=== PATIENT | male | born 1950 | race Caucasian/White ===

== ENCOUNTER → 2017-03-14 | Outpatient (CLI) | payer OTHER, MEDICARE ==
--- NOTE | ~2017-03-14 | PUL ---
PATIENT'S NAME: ALEXANDRIA SUAREZ [facility] AGE: 66 Y [address] ROOM: [place] [address] LOCATION: [facility] ADMIT DATE: 03/14/2017 Pulmonary DISCHARGE DATE: FAMILY PHYSICIAN: AB SALINAS MD ATTENDING PHYSICIAN: AB SALINAS NAME OF PROCEDURE: Sleep Study PROCEDURE DATE: 03/14/17 TECH: TASHA Dooley TEST #: [facility] [place] [id number] TECHNICAL PARAMETERS: The patient was studied using International 10/20 measuring system. While the patient was studied, there was continuous monitoring of EEG (8 leads), EOG (2 leads), EKG (3 leads), submental EMG (3 leads), tibial (4 leads), respiratory inductive plethysmography (RIP) for thoracic and abdominal effort, oral and nasal airflow with a thermocouple and pressure transducer, and oximetry. The case technician also performed visual and auditory observations noting things like body position, patient's status, breath sounds, artifact, snoring level and patient comments. Continuous sound was monitored using a 2-way speaker system and video monitoring was performed using an infrared camera. Review of the entire study was performed epoch by epoch utilizing a single epoch and multiple epoch capability sleep system. MEDICAL HISTORY: The patient is a 66-year-old gentleman with a history of daytime sleepiness and snoring. SLEEP STAGE SUMMARY: The patient was studied for 517 minutes of which he slept 385 minutes. He fell asleep in 12 minutes and slept for 75% of the night. Sleep architecture revealed a decline in slow wave sleep. RESPIRATORY SUMMARY: Oxygen saturations ranged from 79%-92% Prior to initiating CPAP there were 90 apneas and 55 hypopneas. CPAP was initiated and titrated to 12 cm with good control of the respiratory events. EKG SUMMARY: Average heart rate 58 beats per minute. LIMB MOVEMENT SUMMARY: No clinically relevant periodic limb movements were noted. SUMMARY: Moderate obstructive sleep apnea responsive to CPAP at 12 cm. PLAN: Suggest CPAP 12 cm. Patient will receive results from the ordering PATIENT'S NAME: ALEXANDRIA SUAREZ [facility] AGE: 66 Y [address] ROOM: [place] [address] LOCATION: [facility] ADMIT DATE: 03/14/2017 Pulmonary DISCHARGE DATE: FAMILY PHYSICIAN: AB SALINAS MD ATTENDING PHYSICIAN: AB SALINAS provider. CAMERON MALAVE MD [facility] /[id number] dtt: 03/19/17 0838 , Cameron Malave. dtd: 03/16/17 1709
== END | disposition disaster alternative care site (69) ==
LOC: GSLP 20:25
DX: R09.02 Hypoxemia (principal); G47.33 Obstructive sleep apnea (adult) (pediatric)